=== PATIENT | female | born 1975 | race Caucasian/White ===

== ENCOUNTER 2017-01-01 13:31 | Observation (INO) | payer OTHER ==
[~2017-01-01] VITALS: Ht 157.5 cm; Wt 111.0 kg
[2017-01-01 14:23] LABS: BASO % 0.2 % (0.1-1.2); EOS # 0.2 10_X3_uL (0.0-0.4); EOS % 1.8 % (0.7-5.8); GRAN # 7.8 10_X3_uL (1.6-6.1); GRAN % 74.2 % (34.0-71.1); HEMATOCRIT 34.9 % (34-45); HEMOGLOBIN 11.1 g/dL (11.2-15.7); LYMPH # 1.9 10_X3_uL (1.2-3.7); LYMPH % 18.3 % (19.3-51.7); MEAN CORPUSCULAR HEMOGLOBIN 21.8 pg (27.0-33.0); MEAN CORPUSCULAR HGB CONC 31.8 g/dL (32.0-36.0); MEAN CORPUSCULAR VOLUME 68.6 fL (79-95); MEAN PLATELET VOLUME 10.1 fl (7.5-11.5); MONO # 0.6 10_X3_uL (0.2-0.9); MONO % 5.5 % (4.7-12.5); PLATELET COUNT 355 x10_3/uL (182-369); RED BLOOD COUNT 5.09 x10_6/uL (3.9-5.2); RED CELL DISTRIBUTION WIDTH 29.9 % (11.7-14.4); WHITE BLOOD COUNT 10.5 x10_3/uL (4.0-10.0)
[2017-01-01 14:37] LABS: ALBUMIN 3.7 gm/dL (3.4-5.0); ALKALINE PHOSPHATASE 118 U/L (50-136); ALT/SGPT 37 U/L (3.5-33.9); AST/SGOT 28 U/L (7.04-26.96); BILIRUBIN,TOTAL 0.29 mg/dL (0.0-1.0); BLOOD UREA NITROGEN 9 mg/dL (7-18); CALCIUM 8.8 mg/dL (8.7-10.7); CARBON DIOXIDE 23 mmol/L (21-32); CREATINE KINASE 68 U/L (21-215); CREATININE 0.8 mg/dL (0.6-1.3); GLUCOSE,RANDOM 148 mg/dL (70-99); POTASSIUM 3.7 mmol/L (3.5-5.1); SODIUM 140 mmol/L (136-145); TOTAL PROTEIN 6.8 gm/dL (6.4-8.2)
[2017-01-01 17:30] LABS: INR 0.9 (0.9-1.1); PARTIAL THROMBOPLASTIN TIME 22.6 SECONDS (21.3-29.3); PROTHROMBIN TIME (PATIENT) 9.7 SECONDS (9.9-11.1)
[2017-01-01 21:16] LABS: CKMB < 1.0 ng/ml (0.0-5.0); TROP-I < 0.30 NG/ML (0.00-0.30)
[2017-01-02 02:23] LABS: CKMB < 1.0 ng/ml (0.0-5.0); TROP-I < 0.30 NG/ML (0.00-0.30)
[2017-01-02 08:17] LABS: BASO % 0.2 % (0.1-1.2); EOS # 0.2 10_X3_uL (0.0-0.4); EOS % 2.1 % (0.7-5.8); GRAN # 6.2 10_X3_uL (1.6-6.1); GRAN % 66.2 % (34.0-71.1); HEMATOCRIT 33.1 % (34-45); HEMOGLOBIN 10.3 g/dL (11.2-15.7); LYMPH # 2.4 10_X3_uL (1.2-3.7); LYMPH % 25.3 % (19.3-51.7); MEAN CORPUSCULAR HEMOGLOBIN 21.7 pg (27.0-33.0); MEAN CORPUSCULAR HGB CONC 31.1 g/dL (32.0-36.0); MEAN CORPUSCULAR VOLUME 69.8 fL (79-95); MEAN PLATELET VOLUME 10.4 fl (7.5-11.5); MONO # 0.6 10_X3_uL (0.2-0.9); MONO % 6.2 % (4.7-12.5); PLATELET COUNT 317 x10_3/uL (182-369); RED BLOOD COUNT 4.74 x10_6/uL (3.9-5.2); RED CELL DISTRIBUTION WIDTH 29.9 % (11.7-14.4); WHITE BLOOD COUNT 9.4 x10_3/uL (4.0-10.0)
[2017-01-02 08:42] LABS: CKMB < 1.0 ng/ml (0.0-5.0); TROP-I < 0.30 NG/ML (0.00-0.30)
[2017-01-03 07:30] LABS: HEMATOCRIT 32.7 % (34-45); HEMOGLOBIN 10.1 g/dL (11.2-15.7); MEAN CORPUSCULAR HEMOGLOBIN 21.6 pg (27.0-33.0); MEAN CORPUSCULAR HGB CONC 30.9 g/dL (32.0-36.0); MEAN PLATELET VOLUME 9.9 fl (7.5-11.5); RED BLOOD COUNT 4.67 x10_6/uL (3.9-5.2); WHITE BLOOD COUNT 9.5 x10_3/uL (4.0-10.0)
[2017-01-03 07:47] LABS: ALBUMIN 3.4 gm/dL (3.4-5.0); ALKALINE PHOSPHATASE 93 U/L (50-136); ALT/SGPT 34 U/L (3.5-33.9); AST/SGOT 26 U/L (7.04-26.96); BILIRUBIN,TOTAL 0.31 mg/dL (0.0-1.0); BLOOD UREA NITROGEN 14 mg/dL (7-18); CARBON DIOXIDE 26 mmol/L (21-32); CREATININE 0.8 mg/dL (0.6-1.3); GLUCOSE,RANDOM 115 mg/dL (70-99); POTASSIUM 3.9 mmol/L (3.5-5.1); SODIUM 140 mmol/L (136-145); TOTAL PROTEIN 6.3 gm/dL (6.4-8.2)
[2017-01-03 15:36] LABS: CALCIUM 8.9 mg/dL (8.7-10.7)
== END 2017-01-03 12:45 | disposition home or self-care (01) ==
LOC: ER 13:31 → MS 16:20 → UNDODEPER 01-05 07:02
PROVIDERS: Emergency Medicine; ADMIT Family Medicine
PROC: 3E0234Z Introduction of Serum, Toxoid and Vaccine into Muscle, Percutaneous Approach (ICD-10-PCS; principal; 2017-01-03)
DX: I11.0 Hypertensive heart disease with heart failure (principal); I50.23 Acute on chronic systolic (congestive) heart failure; R07.89 Other chest pain; D64.9 Anemia, unspecified; R51 Headache; R42 Dizziness and giddiness; Z79.899 Other long term (current) drug therapy; Z88.5 Allergy status to narcotic agent; F17.210 Nicotine dependence, cigarettes, uncomplicated; Z83.3 Family history of diabetes mellitus; Z83.6 Family history of other diseases of the respiratory system; Z80.9 Family history of malignant neoplasm, unspecified; Z23 Encounter for immunization
CPT/HCPCS: 36415; 71010; 80053; 80061; 81025; 82550; 82553; 83036; 83880; 85025; 85610; 85730; 90653; 90732; 93005; 93041; 96361; 96372; 96374; 96375; 96376; 99070; 99285-25; G0008; G0009; G0378; J1170

== ENCOUNTER 2017-01-17 03:16 | Emergency (ER) | payer OTHER ==
[2017-01-17 03:41] LABS: BASO % 0.4 % (0.1-1.2); EOS # 0.1 10_X3_uL (0.0-0.4); GRAN # 6.5 10_X3_uL (1.6-6.1); GRAN % 60.2 % (34.0-71.1); HEMATOCRIT 37.7 % (34-45); HEMOGLOBIN 12.1 g/dL (11.2-15.7); LYMPH # 3.5 10_X3_uL (1.2-3.7); LYMPH % 31.9 % (19.3-51.7); MEAN CORPUSCULAR HEMOGLOBIN 24.1 pg (27.0-33.0); MEAN CORPUSCULAR HGB CONC 32.1 g/dL (32.0-36.0); MEAN PLATELET VOLUME 9.9 fl (7.5-11.5); MONO # 0.7 10_X3_uL (0.2-0.9); MONO % 6.5 % (4.7-12.5); PLATELET COUNT 504 x10_3/uL (182-369); RED BLOOD COUNT 5.03 x10_6/uL (3.9-5.2); WHITE BLOOD COUNT 10.8 x10_3/uL (4.0-10.0)
[2017-01-17 03:57] LABS: ALBUMIN 4.2 gm/dL (3.4-5.0); ALKALINE PHOSPHATASE 136 U/L (50-136); ALT/SGPT 18 U/L (3.5-33.9); AST/SGOT 15 U/L (7.04-26.96); BILIRUBIN,TOTAL 0.25 mg/dL (0.0-1.0); BLOOD UREA NITROGEN 9 mg/dL (7-18); CALCIUM 9.2 mg/dL (8.7-10.7); CARBON DIOXIDE 24 mmol/L (21-32); CREATINE KINASE 57 U/L (21-215); GLUCOSE,RANDOM 137 mg/dL (70-99); POTASSIUM 3.3 mmol/L (3.5-5.1); SODIUM 142 mmol/L (136-145); TOTAL PROTEIN 7.8 gm/dL (6.4-8.2)
== END 2017-01-17 06:09 | disposition home or self-care (01) ==
LOC: ER 03:16
PROVIDERS: General Practice
DX: R07.89 Other chest pain (principal); I51.7 Cardiomegaly; D72.829 Elevated white blood cell count, unspecified; R79.1 Abnormal coagulation profile; R60.0 Localized edema; R06.02 Shortness of breath; E66.01 Morbid (severe) obesity due to excess calories; I11.0 Hypertensive heart disease with heart failure; I50.9 Heart failure, unspecified; F17.210 Nicotine dependence, cigarettes, uncomplicated; Z88.5 Allergy status to narcotic agent
CPT/HCPCS: 36415; 71010; 71260; 80053; 82550; 82553; 83880; 85025; 85379; 93005; 96374; 99070; 99285-25; J7040; Q9967

== ENCOUNTER 2017-02-12 16:41 | Observation (INO) | payer OTHER | END 2017-02-14 14:01 | disposition home or self-care (01) | LOC: ER 16:41 → MS 22:17 | PROVIDERS: ADMIT Family Medicine | DX: I50.9 Heart failure, unspecified (principal); I10 Essential (primary) hypertension; R07.89 Other chest pain; R06.02 Shortness of breath; R25.2 Cramp and spasm; E87.6 Hypokalemia; F17.210 Nicotine dependence, cigarettes, uncomplicated; Z88.5 Allergy status to narcotic agent; Z79.899 Other long term (current) drug therapy ==